=== PATIENT | male | born 2000 | race Caucasian/White ===

== ENCOUNTER 2022-02-13 17:39 | Day surgery (SDC) | payer OTHER, SELFPAY ==
[2022-02-13] VITALS (10 sets, daily range): BP systolic 110–134; BP diastolic 60–79; PULSE 74–120; RESP 10–18; TEMP 36.3–36.9; O2SAT 96–98
--- NOTE | 2022-02-13 18:14 | CT_ITS ---
Patient: TG WILLIS Facility:?[facility] Patient ID:?[id number] Site Patient ID:?[id number]. Site :?2002 Study:?CT-Abdomen/Pelvis W/79CC [id number] 6:47:08 PM Ordering Physician:Adele Rodriguez Final Report: INDICATION: Right lower quadrant pain TECHNIQUE: CT abdomen and pelvis acquired with 79 cc Isovue 370 contrast. COMPARISON: None FINDINGS: Lower chest: Unremarkable. Liver: Unremarkable. Gallbladder and bile ducts: Unremarkable. Spleen: Unremarkable. Pancreas: Unremarkable. Adrenal glands: Unremarkable. Kidneys: Unremarkable. GI tract: The appendix is dilated with thickened wall and mild fat stranding. Appendix measures 9 mm in diameter. No evidence of perforation or abscess Vascular structures: Negative. No sign of aneurysm. Lymph nodes: Unremarkable. Miscellaneous: Unremarkable. No free air or significant free fluid. Pelvic Organs: Unremarkable. Bones: Unremarkable for age. IMPRESSION: Findings compatible with acute uncomplicated appendicitis. No evidence of perforation or abscess. Please note that all CT scans at this facility use dose modulation, iterative reconstruction, and/or weight-based dosing when appropriate to reduce radiation dose to as low as reasonably achievable. Dictated by Karl Meeks MD @ 02/13/2022 7:03:26 PM Signed by:?Karl Meeks MD @02/13/2022 7:03:26 PM (Electronic Signature)
--- NOTE | 2022-02-13 18:15 | ED.ABDPAIN ---
HPI - Abdominal Pain General Chief Complaint: Abdominal Pain Stated Complaint: Lower Abdominal Pain Time Seen by Provider: 02/13/22 18:08 History of Present Illness HPI narrative: This 21-year-old male comes in reporting lower abdominal pain that began 3 days ago. He states that the pain seems to come and go. He has not had any fevers. He does have decreased appetite but has been able to take food and drink without difficulty. He does not report any nausea or vomiting. He has not had a diarrhea or blood in the toilet. He does arrive with normal temperature and a pulse that is increased at around 120 beats per minute. Prior to this he has been in good health. Related Data Allergies Allergy/AdvReac Type Severity Reaction Status Date / Time No Known Drug Allergies Allergy Verified 02/13/22 18:43 Review of Systems Status of ROS Reports: 10 or more systems reviewed and unremarkable except as noted in History and below Narrative Constitutional: No fevers, no weight gain or loss. Eyes: No discharge. No vision changes. HENT: No congestion, no sore throat, no ear pain. Cardiovascular: No chest pain, no palpitations. Respiratory: No shortness of breath, no wheezes, no cough. Gastrointestinal: No vomiting, no diarrhea. Lower abdominal pain. Genitourinary: No dysuria, no hematuria. Musculoskeletal: Normal range of motion. Skin: No rashes, no pruritis. Neurological: No dizziness, weakness, sensory change, speech change. Endo/Heme/Allergies: No bruising or bleeding. No polydipsia. Pysch: no suicidality, no anxiety, no insomnia. All other systems reviewed and are negative. PFSH PFSH Social History Smoking Status: Never smoker Do you use any of these nicotine containing products: None Second hand tobacco smoke exposure: No How often do you have a drink containing alcohol: never How often do you have six or more drinks on one occasion: Never AUDIT-C Alcohol total score: 0 Non-prescribed substance use: denies use service: No Exam Narrative: Exam Narrative: Constitutional: Well-developed, well-nourished, no acute distress. HEENT: Normocephalic, atraumatic. Neck: Normal range of motion. Nontender. Supple. Heart: Regular. No murmurs. Normal rate. Intact distal pulses. Lungs: Clear to auscultation. No chest discomfort. No wheezes, rhonchi, or rales. Abdomen: Decreased bowel sounds. Tenderness in the lower abdomen. He has distinct rebound tenderness. Genitalia: Deferred. Back: No midline tenderness. Normal range of motion. Extremities: Normal range of motion. No injury. Skin: Intact. No rash. Warm. No erythema or pallor. Neurologic: No altered sensation. No weakness. Alert and oriented. Psychiatric: No suicidality. No anxiety or depression. No insomnia. Nursing notes and vitals signs are reviewed. Const: Vital Signs, click to edit/add: Vital Signs - 24 hr 02/13/22 17:46 02/13/22 18:07 02/13/22 19:00 Temperature 97.3 F L 97.3 F L Pulse Rate [Pulse Oximeter] 120 H 120 H Respiratory Rate 18 18 Blood Pressure [Ri ght Upper Arm] 124/60 124/60 123/63 Pulse Oximetry 97 97 Oxygen Delivery Me thod Room Air Room Air 02/13/22 19:30 02/13/22 20:00 02/13/22 20:30 Temperature Pulse Rate [Pulse Oximeter] Respiratory Rate Blood Pressure [Ri ght Upper Arm] 110/65 116/60 117/61 Pulse Oximetry Oxygen Delivery Me thod Course Vital Signs Vital signs: Initial Vital Signs Temperature 97.3 F L 02/13/22 17:46 Temperature Source Temporal Artery Scan 02/13/22 17:46 Pulse Rate 120 H 02/13/22 17:46 Pulse Rhythm 02/13/22 17:46 Respiratory Rate 18 02/13/22 17:46 Blood Pressure 124/60 02/13/22 17:46 Blood Pressure Mean 81 02/13/22 17:46 Blood Pressure Position Sitting 02/13/22 17:46 Pulse Oximetry 97 02/13/22 17:46 Oxygen Delivery Method 02/13/22 17:46 Vital Signs Temperature 97.3 F L 02/13/22 17:46 Pulse Rate 120 H 02/13/22 17:46 Respiratory Rate 18 02/13/22 17:46 Blood Pressure 124/60 02/13/22 17:46 Pulse Oximetry 97 02/13/22 17:46 Oxygen Delivery Method 02/13/22 17:46 Temperature 97.3 F L 02/13/22 18:07 Pulse Rate 120 H 02/13/22 18:07 Respiratory Rate 18 02/13/22 18:07 Blood Pressure 117/61 02/13/22 20:30 Pulse Oximetry 97 02/13/22 18:07 Oxygen Delivery Method 02/13/22 18:07 MDM - Abdominal Pain MDM Narrative Medical decision making narrative: This patient comes in with abdominal pain as described above. This CT scan with contrast is acquired of the abdomen and pelvis. This returns with evidence of acute uncomplicated appendicitis. The patient's white count returns normal at 8. He does have mild tachycardia. I spoke with the surgeon on-call, Dr. Terrell, who will arrange for appendectomy in the morning. He is admitted overnight and received IV fluids and a dose of Zosyn. Lab Data Labs: Lab Results 02/13/22 02/13/22 Range/Units 18:30 18:30 WBC 7.97 (4.50-11.00) K/uL RBC 5.04 (4.30-5.90) m/uL Hgb 15.5 (13.5-17.5) gm/dL Hct 44.3 (37.0-53.0) % MCV 88 (80-100) fL MCH 31 (26-34) pg MCHC 35 (32-36) gm/dL RDW Coeff of Baldemar 11.7 (11.5-15.5) % Plt Count 195 (140-440) K/uL Neut % (Auto) 80.9 H (42.0-72.0) % Lymph % (Auto) 13.2 L (20-44) % Hardin % (Auto) 5.1 (0.0-11.0) % Eos % (Auto) 0.4 (0.0-7.0) % Baso % (Auto) 0.3 (0.0-3.0) % Neut # (Auto) 6.40 (1.7-7.0) K/uL Lymph # (Auto) 1.10 (0.90-2.90) K/uL Hardin # (Auto) 0.40 (0.00-0.90) K/UL Eos # (Auto) 0.03 (0.00-0.50) K/uL Baso # (Auto) 0.02 (0.00-0.30) K/uL Abs Immat Gran (auto) 0.01 (0.00-0.30) K/uL Imm/Tot Granulo (auto) 0.1 % Sodium 137 (135-149) mmol/L Potassium 4.1 (3.6-5.1) mmol/L Chloride 98 (96-114) mmol/L Carbon Dioxide 29 (20-32) mmol/L BUN 16 (5-24) mg/dL Creatinine 0.9 (0.6-1.2) mg/dL Estimated Creat Clear 135.52 Estimated GFR 126 ml/min Glucose 181 H (60-115) mg/dL Calcium 9.7 (8.7-10.8) mg/dL Imaging Data CT scan - abdomen: Radiologist's impression: Findings compatible with acute uncomplicated appendicitis. No evidence of perforation or abscess. Discharge Plan Discharge Clinical Impression: Acute appendicitis Patient Disposition: Admitted As Inpatient Condition: Unchanged Follow Up/Referrals: Provider,Not a Local [Primary Care Provider] -
[2022-02-13 18:35] LABS: Basophils Absolute Auto 0.02 K/uL (0.00-0.30); Basophils Percent Auto 0.3 % (0.0-3.0); Eosinophils Absolute Auto 0.03 K/uL (0.00-0.50); Eosinophils Percent Auto 0.4 % (0.0-7.0); Hematocrit 44.3 % (37.0-53.0); Hemoglobin* 15.5 gm/dL (13.5-17.5); Immature Granulocytes Abs Auto 0.01 K/uL (0.00-0.30); Immature Granulocytes Pct Auto 0.1 %; Lymphocytes Percent Auto 13.2 % (20-44); Mean Corpuscular HGB Conc 35 gm/dL (32-36); Mean Corpuscular Hemoglobin 31 pg (26-34); Mean Corpuscular Volume 88 fL (80-100); Monocytes Percent Auto 5.1 % (0.0-11.0); Neutrophils Percent Auto 80.9 % (42.0-72.0); Platelet Count* 195 K/uL (140-440); RDW Coefficient of Variation % 11.7 % (11.5-15.5); Red Blood Count 5.04 m/uL (4.30-5.90); White Blood Count* 7.97 K/uL (4.50-11.00)
[2022-02-13 18:40] LABS: Slide Review Reflex No
[2022-02-13 18:49] LABS: Chloride* 98 mmol/L (96-114); Potassium* 4.1 mmol/L (3.6-5.1); Sodium* 137 mmol/L (135-149)
[2022-02-13 18:52] LABS: Blood Urea Nitrogen* 16 mg/dL (5-24); Calcium* 9.7 mg/dL (8.7-10.8); Carbon Dioxide* 29 mmol/L (20-32); Creatinine* 0.9 mg/dL (0.6-1.2); Est. Creatinine Clearance* 135.52; Estimated Glomerular Filt Rate 126 ml/min; Glucose* 181 mg/dL (60-115)
[2022-02-13] MEDS: PIPERACILLIN/TAZOBACTAM 4.5 GM in 0.9 % SODIUM CHLORIDE Mini-bag 100 ML IVPB (21:11)
[2022-02-13] MEDS: 0.9 % SODIUM CHLORIDE 1000 ml 1,000 ML IV (21:11)
[2022-02-13 21:28] LABS: PCR FLU A Negative PCR FLU A (Negative); PCR FLU B Negative PCR FLU B (Negative); PCR RSV Negative PCR RSV (Negative)
[2022-02-13 21:38] LABS: SARS PCR* Negative SARS-CoV-2 (Negative)
[2022-02-13] MEDS: LACTATED RINGERS 1000 ML 1,000 ML 100 ML IV (22:21)
[2022-02-14] VITALS (17 sets, daily range): BP systolic 103–130; BP diastolic 47–86; PULSE 68–120; RESP 14–18; TEMP 36.4–37.2; O2SAT 94–99
[2022-02-14] MEDS: PIPERACILLIN/TAZOBACTAM 3.375 GM in 0.9 % SODIUM CHLORIDE Mini-bag 100 ML IVPB (03:11)
--- NOTE | 2022-02-14 05:50 | PC.NURSE ---
ADMISSION/SHIFT NOTE: Pt to room 260 for plan for sx today at 0800, NPO at midnight. Pt has denied pain, SOB, CP, and N/V. Up independent to the BR. A&O, pleasant and cooperative.
[2022-02-14] MEDS: LACTATED RINGERS 1000 ML 1,000 ML 100 ML IV ×2 (08:00→11:32)
--- NOTE | 2022-02-14 08:19 | P.GSHP_ITS ---
History of Present Illness History of Present Illness Date Seen: 02/14/22 Chief complaint: Lower Abdominal Pain Narrative: Malvin Aranda is a 21 year old male presented to emergency room was abdominal pain, and I was asked by Dr. Ibarra to see him in consultation. Patient states that his pain started on Wednesday. He described it as bilateral lower quadrant abdominal pain. Overall he was not feeling well. He attempted to go to class but was only able to stay there for 20 minutes because of his pain. He mostly stayed in bed. He denies any nausea or vomiting. Yesterday in the evening he went to [facility] and was referred to the emergency room. Patient has been passing gas yesterday. His last bowel movement was on . In the emergency room he was found to have a normal WBC. An abdominal CT was obtained that showed a dilated wall enhancing appendix suspicious for acute appendicitis. There was no phlegmon or periappendiceal abscess. Review of Systems Narrative: General: no fevers HENT: no problems swallowing CV: no shortness of breath Resp: no cough GI: See above : no dysuria, no increased urinary frequency, no hematuria Skin: no new rashes Musculoskeletal: no back pain Neuro: no muscle weakness Psyche: no depression, no anxiety PFSH PFSH Surgical History S/P tonsillectomy Social History Narrative: Patient is a student. He is originally from [place]. Smoking Status: Never smoker Do you use any of these nicotine containing products: None Second hand tobacco smoke exposure: No How often do you have a drink containing alcohol: never How often do you have six or more drinks on one occasion: Never AUDIT-C Alcohol total score: 0 Non-prescribed substance use: denies use service: No Meds Home Medications and Allergies Allergies Allergy/AdvReac Type Severity Reaction Status Date / Time No Known Drug Allergies Allergy Verified 02/13/22 18:43 Exam Narrative: Exam Narrative: General appearance: Alert, cooperative, and in no distress Pulmonary: Chest symmetric, lungs clear bilaterally Cardiovascular Heart: Regular rate and rhythm, S1, S2, no murmurs/rubs/gallops Gastrointestinal Abdominal: soft, not distended, tender to palpation in bilateral lower qu adrants, right more than left, with rebound tenderness in the right lower quadrant. Skin: Normal skin color, texture, and turgor. No rashes or lesions. Psychiatric: Alert, cooperative, normal affect. Const: Vital Signs, click to edit/add: Vital Signs - 24 hr 02/13/22 17:46 02/13/22 18:07 02/13/22 19:00 Temperature 97.3 F L 97.3 F L Pulse Rate Pulse Rate [Pulse Oximeter] 120 H 120 H Pulse Rate [Right Pulse Oximeter] Respiratory Rate 18 18 Blood Pressure Blood Pressure [Ri ght Arm] Blood Pressure [Ri ght Upper Arm] 124/60 124/60 123/63 Pulse Oximetry 97 97 Oxygen Delivery Me thod Room Air Room Air 02/13/22 19:30 02/13/22 20:00 02/13/22 20:30 Temperature Pulse Rate Pulse Rate [Pulse Oximeter] Pulse Rate [Right Pulse Oximeter] Respiratory Rate Blood Pressure Blood Pressure [Ri ght Arm] Blood Pressure [Ri ght Upper Arm] 110/65 116/60 117/61 Pulse Oximetry Oxygen Delivery Me thod 02/13/22 22:00 02/13/22 21:30 02/13/22 21:00 Temperature Pulse Rate Pulse Rate [Pulse Oximeter] 88 103 H 101 H Pulse Rate [Right Pulse Oximeter] Respiratory Rate 14 12 10 L Blood Pressure Blood Pressure [Ri ght Arm] Blood Pressure [Ri ght Upper Arm] 134/66 121/73 128/75 Pulse Oximetry 98 98 97 Oxygen Delivery Me thod 02/13/22 23:00 02/13/22 23:00 02/14/22 03:00 Temperature 98.4 F 98.4 F 98 F Pulse Rate 74 Pulse Rate [Pulse Oximeter] Pulse Rate [Right Pulse Oximeter] 96 71 Respiratory Rate 16 16 18 Blood Pressure 132/79 Blood Pressure [Ri ght Arm] 132/79 110/62 Blood Pressure [Ri ght Upper Arm] Pulse Oximetry 96 96 96 Oxygen Delivery Me thod Room Air Room Air Results Results CT scan - pelvis: report reviewed and image reviewed Assessment and Plan Assessment and plan (1) Acute appendicitis: Status: Acute Plan 21-year-old male presents with acute appendicitis. I discussed with the patient his laboratory and imaging findings. His history is slightly prolonged for acute appendicitis but his CT findings and his clinical exam I very suggestive of acute appendicitis. I recommended to proceed with laparoscopic appendectomy. The procedure was discussed in detail. The risks associated procedure including infection, bleeding, and injury to intra- abdominal organs were all discussed with the patient, and he agreed to proceed.
[2022-02-14] MEDS: PIPERACILLIN/TAZOBACTAM 3.375 GM INJ IVP (09:50)
[2022-02-14] MEDS: BUPIVACAINE 0.25% 30 ML INJECTION (10:16)
--- NOTE | 2022-02-14 10:18 | PM.GSPRC ---
Operative Note Date of procedure: 02/14/22 Type of Procedure: 1. Laparoscopic appendectomy. Procedure Description: After discussing the risks and benefits of the procedure, the patient signed informed consent.? The operative site was marked and the patient was brought to the operating room and placed on the operating table in supine position.? Care was taken to pad the patient's pressure points.?? The patient was then intubated by anesthesia.?? The operative site was then prepped and draped in the usual sterile fashion.? A time-out was then performed. ? A 5-mm laparoscopy port was placed in the left upper quadrant guided by a 5-mm laparoscope placed into a translucent trochar. Passage through the layers of the abdominal wall was visualized with the laparoscope. A pneumoperitoneum was established. A 30-degree 5-mm laparoscope was advanced into the abdomen. The abdomen was briefly surveyed, and there was no evidence of diffuse peritonitis. A 12-mm port and a 5-mm port were placed in the left low quadrant and suprapubically, respectively, under direct visualization by laparoscope. Left upper quadrant entrance port was then examined intraabdominally by placing the camera through the left lower quadrant port and no intraabdominal injury was seen. The patient was placed in Trendelenburg position, allowing the abdominal contents to shift cephalad. The small bowel was moved toward the midline in the abdomen and this allowed for identification of the appendix. It appeared to be inflamed. The appendix was grasped and dissected from the peritoneum using Harmonic scalpel. The appendiceal mesentery was skeletonized with the Harmonic scalpel. Appendiceal artery and vein were clearly identified. Those were clipped with 5 mm clips on the patient's side and divided with Harmonic scalpel on the specimen side. No bleeding was seen from appendiceal mesentery. The appendiceal base was then further skeletonized with Harmonic scalpel. A vascular load Endo-MITALI stapler was advanced through the 12-mm port into the abdomen and appendix was stapled off at its base. The appendix was then placed in an endoscopic retrieval bag and extracted from the abdomen through the 12-mm port. The abdomen was surveyed for hemostasis. And no bleeding was seen. Thin yellow ascitic fluid was seen in the pelvis, and that was suctioned out. The 12-mm port was withdrawn and the fascial defect was closed with 0-0 Vicryl [id number] stitch. This closure site was examined intra-abdominally, and no intra-abdominal organs were incarcerated in the closure. The 5-mm port was removed under direct visualization. The left upper quadrant port was used to evacuate the pneumoperitoneum and then withdrawn. The skin incisions were closed with 4-0 monocryl. Steri-Strips were applied over the incisions. All counts were correct at the end of the case. The patient tolerated this procedure well and was transferred to PACU in stable condition. Findings: Inflamed appendix with no evidence of perforation. Anesthesia: GETA Surgeon: Serenity Terrell MD Condition: stable Disposition: PACU
--- NOTE | 2022-02-14 10:28 | W.ANESCHARGE ---
Anesthesia Charges Start Date/Time Anesthesia Start Date: 02/14/22 Anesthesia Start Time: 09:27 Stop Date/Time Anesthesia Stop Date: 02/14/22 Anesthesia Stop Time: 10:30 Summary Emergency: Yes
[2022-02-14] MEDS: MORPHINE 2 MG/ML inj IVP ×2 (11:35→13:57)
[2022-02-14] MEDS: HYDROCODONE-ACETAMIN 5-325 MG 1 TAB PO (17:12)
--- NOTE | 2022-02-14 18:07 | PC.NURSE ---
Shift Summary: Patient pleasant and cooperative. Up independently, lap sites with dried blood, no active bleeding noted. Pain with ambulation and position change, rates pain at worse 5/10. Tolerating regular diet, denies nausea, voiding. Vitals stable and WNL. IV removed, discharge instructions given to patient and uncle. Discharged @ 1742 via wheelchair.
== END 2022-02-14 17:42 | disposition home or self-care (01) ==
LOC: ED 21:08 → SS 21:16 → MEDSURG 21:17
PROVIDERS: Emergency Provider Emergency Medicine Emergency Medical Services; Visit Provider Surgery
PROC: 0DTJ4ZZ Resection of Appendix, Percutaneous Endoscopic Approach (ICD-10-PCS; CPT 44970; principal; 2022-02-14 09:30)
DX: K35.80 Unspecified acute appendicitis (principal); R10.30 Lower abdominal pain, unspecified
CPT/HCPCS: 44970; 00840; 36415; 74177; 80048; 85025; 87502; 87634; 87635; 88304; 99140; 99284; 99285; A9270; J0330; J1100; J1885; J2250; J2270; J2405; J2543; J2704; J2710; J3010; J3490; J7030; J7120; Q9967

== ENCOUNTER 2023-02-01 18:31 | Emergency (ER) | payer OTHER, SELFPAY ==
[2023-02-01 18:34] VITALS: BP 125/78; PULSE 93; RESP 18; TEMP 36.8; O2SAT 97; BMI 21.2
--- NOTE | 2023-02-01 18:42 | CRLHL7_ITS ---
For Patients: As a result of the Cures Act, medical imaging exams and procedure reports are released immediately into your electronic medical record. You may view this report before your referring provider. If you have questions, please contact your health care provider. INDICATION: Fall. TECHNIQUE: Right clavicle 2 views. COMPARISON: None. FINDINGS: There is an acute comminuted fracture of the mid right clavicle with superior displacement and angulation of the proximal fracture fragment. Approximately 3 cm overlap of the dominant fracture fragments. The acromioclavicular joint is normally aligned. The visualized right lung is clear. Soft tissues are unremarkable. IMPRESSION: Acute comminuted displaced fracture of the mid right clavicle. Dictated by Annika Avila MD @ 02/01/2023 7:39:53 PM (Electronically Signed)
--- NOTE | 2023-02-01 19:40 | ED.UPPEXIN ---
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 Zapata a snap in the clavicle, is worried about his clavicle. Denies any numbness tingling in this upper extremity, can feel his fingers, can move them per report. He has no neck pain, no head pain, nothing else was injured. He has not taken anything for pain. Nursing staff did provide him with an arm sling and ice pack appropriately on arrival. X-ray images were obtained, I am able to show him that he has a comminuted shortened midshaft clavicle fracture. complaint: injury to: right and shoulder ( Specifically the clavicle) Other injuries: none Related Data Home Medications Medication Instructions Recorded Confirmed No Known Home Medications 02/01/23 02/01/23 Allergies Allergy/AdvReac Type Severity Reaction Status Date / Time No Known Drug Allergies Allergy Verified 02/01/23 18:39 Review of Systems Narrative: as per HPI. PFSH PFSH Surgical History S/P tonsillectomy ?Z90.89 - Acquired absence of other organs (ICD-10) Social History Narrative: Patient is a student. He is originally from [place]. Smoking Status: Never smoker Do you use any of these nicotine containing products: None Second hand tobacco smoke exposure: No How often do you have a drink containing alcohol: never How often do you have six or more drinks on one occasion: Never AUDIT-C Alcohol total score: 0 Non-prescribed substance use: denies use service: No Exam Const: Vital Signs, click to edit/add: Vital Signs - 24 hr 02/01/23 18:34 Temperature 98.2 F Pulse Rate [Pulse Oximeter] 93 Respiratory Rate 18 Blood Pressure [Le ft Upper Arm] 125/78 Pulse Oximetry 97 Oxygen Delivery Me thod Room Air This 22-year-old male is seen exam room 7, he is alert, interactive, no apparent distress. His right arm is in a sling, he can move his fingers, neurovascular is intact distally. You can see that there is raised skin in the center of the clavicle but there is not tension per se on the skin. There is an obvious deformity of the midshaft of the clavicle. CV regular rate and rhythm, no murmur, normal S1 and S2. Lungs are clear, good air entry, no wheezing or crackles. Patient is shown images of his clavicle fracture. Documenting provider has reviewed patient's vital signs: yes Course Course ED Course: Patient has a significant clavicle fracture, did review with him that I would be talking to Orthopedics on this 1. We will give him 5 mg oral oxycodone for some initial pain management, he has not eaten recently and thus will give him some Zofran as well. Consultations Consultation #1: Karl from orthopedics has seen images, believes likely to be surgical. Requests that he follow up with them this week, sling and recommendations made. Time: 19:50 Vital Signs Vital signs: Initial Vital Signs Temperature 98.2 F 02/01/23 18:34 Temperature Source Temporal Artery Scan 02/01/23 18:34 Pulse Rate 93 02/01/23 18:34 Respiratory Rate 18 02/01/23 18:34 Blood Pressure 125/78 02/01/23 18:34 Blood Pressure Mean 93 02/01/23 18:34 Blood Pressure Position Sitting 02/01/23 18:34 Pulse Oximetry 97 02/01/23 18:34 Oxygen Delivery Method Room Air 02/01/23 18:34 Vital Signs Temperature 98.2 F 02/01/23 18:34 Pulse Rate 93 02/01/23 18:34 Respiratory Rate 18 02/01/23 18:34 Blood Pressure 125/78 02/01/23 18:34 Pulse Oximetry 97 02/01/23 18:34 Oxygen Delivery Method Room Air 02/01/23 18:34 Temperature 98.2 F 02/01/23 18:34 Pulse Rate 93 02/01/23 18:34 Respiratory Rate 18 02/01/23 18:34 Blood Pressure 125/78 02/01/23 18:34 Pulse Oximetry 97 02/01/23 18:34 Oxygen Delivery Method Room Air 02/01/23 18:34 MDM - Extremity Injury (Upper) Imaging Data XR right clavicle: My impression: Mid shaft comminuted it shortened clavicle fracture. Await Radiology over-read. Radiologist's impression: Patient: TG WILLIS Facility:?[facility] Patient ID:?[id number] Site Patient ID:?[id number]. Site :?2002 Study:?XRay Extremity Right CLAVICAL-02/01/2023 7:01:09 PM Ordering Physician:?PROVIDER TEMP Final Report: INDICATION: Fall. TECHNIQUE: Right clavicle 2 views. COMPARISON: None. FINDINGS: There is an acute comminuted fracture of the mid right clavicle with superior displacement and angulation of the proximal fracture fragment. Approximately 3 cm overlap of the dominant fracture fragments. The acromioclavicular joint is normally aligned. The visualized right lung is clear. Soft tissues are unremarkable. IMPRESSION: Acute comminuted displaced fracture of the mid right clavicle. Dictated by Annika Avila MD @ 02/01/2023 7:39:53 PM (Electronic Signature) Discharge Plan Discharge Clinical Impression: Closed fracture of right clavicle Patient Disposition: Home, Self-Care Condition: Stable Instructions: Clavicle Fracture (ED) Additional Instructions: Need to call orthopedic clinic tomorrow at [phone] to get scheduled for follow up, they will decide on surgery definitively but do believe that it is very likely for you. Use sling for comfort, ice to help decrease pain and swelling. Use Tylenol 1000mg 3x/day baseline for pain; supplement with ibuprofen 400-600mg 3-4x/day with food. Can use the oxycodone at bedtime for sleep. May need to sleep more upright for the time being, prop pillows behind the right shoulder/arm for support. If you feel that the skin overlying the fracture is becoming more tight/looking thinner, need to be re-evaluated. Can take arm out of sling few times a day for gentle range of motion of shoulder and elbow. Prescriptions: No Action No Known Home Medications Follow Up/Referrals: Provider,Not a Local [Primary Care Provider] - Stand Alone Forms: [employer] Info Instructions
[2023-02-01] MEDS: OXYCODONE 5 MG TABLET PO (19:52)
[2023-02-01] MEDS: ONDANSETRON ODT 4 MG TAB PO (19:52)
== END 2023-02-01 20:27 | disposition home or self-care (01) ==
LOC: ED 20:08
PROVIDERS: Emergency Provider Family Medicine
DX: S42.001A Fracture of unspecified part of right clavicle, initial encounter for closed fracture (principal); W01.0XXA Fall on same level from slipping, tripping and stumbling without subsequent striking against object, initial encounter; Y93.74 Activity, frisbee
CPT/HCPCS: 73000; 99283; A9270

== ENCOUNTER 2023-02-04 09:11 | Day surgery (SDC) | payer OTHER, SELFPAY ==
[2023-02-04] VITALS (12 sets, daily range): BP systolic 107–128; BP diastolic 51–75; PULSE 63–81; RESP 16; TEMP 36.2–36.9; O2SAT 95–100; BMI 20.3
[2023-02-04] MEDS: CELECOXIB 200 MG CAPSULE PO (09:25)
[2023-02-04] MEDS: OXYCODONE (CR) 10 MG TAB.ER.12H PO (09:25)
[2023-02-04] MEDS: ACETAMINOPHEN 500 MG TABLET 1000 MG PO (09:25)
[2023-02-04] MEDS: SODIUM CHLORIDE 0.9 % (FLUSH) 10 ML SYRINGE IVF (09:30)
[2023-02-04] MEDS: LACTATED RINGERS 1000 ML 1,000 ML 100 ML IV ×2 (09:30→13:20)
--- NOTE | 2023-02-04 09:51 | P.ORHP_ITS ---
History of Present Illness History of Present Illness Date Seen: 02/04/23 Chief complaint: Open reduction internal fixation right clavicle Narrative: Malvin Aranda is a 22 year old male [facility] Surgical History History of laparoscopic appendectomy (02/14/22) ?Z90.49 - Acquired absence of other specified parts of digestive tract (ICD- 10) S/P tonsillectomy ?Z90.89 - Acquired absence of other organs (ICD-10) Social History Narrative: Patient is a student. He is originally from [place]. Smoking Status: Never smoker Do you use any of these nicotine containing products: None Second hand tobacco smoke exposure: No How often do you have a drink containing alcohol: never How often do you have six or more drinks on one occasion: Never AUDIT-C Alcohol total score: 0 Non-prescribed substance use: denies use Caffeine: Yes service: No Meds Home Medications and Allergies Home Medications Medication Instructions Recorded Confirmed Type No Known Home Medications 02/01/23 02/03/23 History Allergies Allergy/AdvReac Type Severity Reaction Status Date / Time No Known Drug Allergies Allergy Verified 02/04/23 10:11
--- NOTE | 2023-02-04 09:53 | P.PROHP_ITS ---
HPI - Pre-Anesthesia History of Present Illness Time Seen by Provider: 09:53 Date Seen: 02/04/23 Date of service: 02/04/23 Reason for visit: Right clavicle fracture. 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 He was playing [employer] on 02/01/2023 when he fell onto his right shoulder area. [place] a snap in the clavicle. Denies any numbness tingling in this upper extremity, can feel his fingers, can move them. He has no neck pain, no head pain, nothing else was injured. He he took ibuprofen last evening. He has been NPO. He has used an arm sling and ice pack. X-ray images were obtained which shows comminuted shortened midshaft clavicle fracture. He denies DVT, PE history. He has not had trouble with anesthesia in the past. Review of Systems Narrative: Patient denies nausea, vomiting, fever, chills, chest pain, shortness of breath Cardio: Reports: other (No history of heart murmur) Musculo: Reports: other (Right clavicle pain/soreness) [facility] Surgical History History of laparoscopic appendectomy (02/14/22) ?Z90.49 - Acquired absence of other specified parts of digestive tract (ICD- 10) S/P tonsillectomy ?Z90.89 - Acquired absence of other organs (ICD-10) Social History Narrative: Patient is a student. He is originally from [place]. Smoking Status: Never smoker Do you use any of these nicotine containing products: None Second hand tobacco smoke exposure: No How often do you have a drink containing alcohol: never How often do you have six or more drinks on one occasion: Never AUDIT-C Alcohol total score: 0 Non-prescribed substance use: denies use service: No Meds Home Medications and Allergies Home Medications Medication Instructions Recorded Confirmed Type No Known Home Medications 02/01/23 02/03/23 History Allergies Allergy/AdvReac Type Severity Reaction Status Date / Time No Known Drug Allergies Allergy Verified 02/03/23 14:39 Exam Narrative Exam Narrative: Alert and oriented x3. Patient is in no acute distress. Converses without labored breathing. Hearing is grossly intact. Ambulates with a normal gait. Examination of the right upper extremity shows prominence of the mid shaft clavicle fracture. Mild tenting of the skin. Mild ecchymosis. No erythema or warmth or sign of infection. CMS intact right upper extremity. Range of motion of the elbow, wrist, fingers is normal. Tenderness over the fracture area midshaft clavicle. Const Documenting provider has reviewed patient's vital signs: yes Common normals: average body habitus, oriented x3 and alert General appearance: cooperative, comfortable and well kempt Orientation/consciousness: Yes awake, Yes oriented to person, Yes oriented to place and Yes oriented to time HENMT Common normals: normocephalic, external ears normal and external nose normal Head and scalp: normocephalic Nose: external nose normal External ear: external ears normal Mouth: oral and palatal mucosa normal Neck & C-Spine Common normals: full ROM and no JVD Lymph Lymphatic: no lymphadenopathy noted Chest Common normals: inspection of chest normal Resp Common normals: normal respiratory effort, no retractions, no use of accessory muscles and clear to auscultation bilaterally Effort & inspection: able to speak in complete sentences and symmetric chest movement Auscultation: clear to auscultation bilaterally Cardio Common normals: no JVD, regular rate and regular rhythm Rate: regular rate Rhythm: regular rhythm GI Common normals: Normal to inspection, nondistended, normoactive bowel sounds present, soft to palpation, non-tender, no hepatosplenomegaly, no masses and no bruits Palpation: soft and no hepatosplenomegaly Extremity Common normals: normal to inspection and full ROM (Except right shoulder, arm held comfortably at his side.) Neuro Common normals: oriented x3 Sensorium/orientation: awake, alert, oriented to person, oriented to place and oriented to time Sensory exam: sensation present Psych Common normals: mental status grossly normal, thought process normal, cooperative, affect normal, speech normal and activity/motor behavior normal Appearance: grossly normal and well kempt Speech: normal speech Thought process: normal thought process Skin Common normals: no rashes or lesions noted General skin exam: no rashes or lesions noted Results Additional Findings: Additional findings: X-rays were taken on 02/01/2023 right clavicle, two views these show Acute comminuted displaced fracture of the mid right clavicle. Assessment and Plan Assessment and plan (1) Closed fracture of right clavicle: Problem comment: Date of injury 02/01/2023 Status: Acute Assessment and Plan: Malvin has been NPO. He did have ibuprofen a last evening. He is optimal for open reduction, internal fixation right clavicle today. Dr. Peña will be the surgeon. He agrees with plan. Patient agrees with the plan. Risks and benefits have been discussed. Note, dictation performed with voice recognition, and as a result, wrong word or sound like substitutions may have occurred. There may be areas in the script that have gone on detected. Please consider this when interpreting information found in the chart.
[2023-02-04] MEDS: fentaNYL 100 MCG/2 ML inj IVP (11:57)
[2023-02-04] MEDS: MIDAZOLAM HCL 1 MG/ML inj IVP (11:57)
--- NOTE | 2023-02-04 12:05 | SUR.PREOP ---
TIME?OUT:?1155 PT/[address] RN/Bassem MIXON MDA?VERIFICATION?OF?SURGICAL?SITE,?PROCEDURE,?AND?CONSENT OBTAINED?PRIOR?TO?INVASIVE?PROCEDURE.
[2023-02-04] MEDS: CEFAZOLIN 2 GM INJ IVP (12:22)
--- NOTE | 2023-02-04 13:15 | W.ANESCHARGE ---
Anesthesia Charges Start Date/Time Anesthesia Start Date: 02/04/23 Anesthesia Start Time: 12:12 Stop Date/Time Anesthesia Stop Date: 02/04/23 Anesthesia Stop Time: 14:15
--- NOTE | 2023-02-04 13:16 | W.PM.NB ---
Nerve Block Nerve Block Time Seen by Provider: 12:02 Date Seen: 02/04/23 Type of block requested by surgeon for post-operative analgesia: supraclavicular Side: right Time out performed: Yes Verification of patient name: Yes Verification of date of : Yes Site marking: site marked Name of person performing procedure: Thong Continuous monitoring Was continuous monitoring of O2 sat, B/P, youth nutritional monitor, recorded every 15 minutes?: Yes Procedure Checklist: sterile prep, needles and gloves Ultrasound guided. Images saved: Yes Medications given in 5ml increments after negative aspiration: Ropivicaine %: 0.5 mL: 20 Needle gauge: 22 Decadron (mg): 10 Precedex (mcg): 25 Patient tolerated procedure well: Yes Block Charges Block Charge (with Pro Fee): Brachial Plexus Use of Ultrasound Machine for Block: Yes- US Guidance/pain block
--- NOTE | 2023-02-04 13:26 | CRLHL7_ITS ---
For Patients: As a result of the Cures Act, medical imaging exams and procedure reports are released immediately into your electronic medical record. You may view this report before your referring provider. If you have questions, please contact your health care provider. Indication: Fracture fixation Technique: Right clavicle one-view Comparison: 02/01/2023 IMPRESSION: Open-reduction internal-fixation mid right clavicle fracture with near anatomic alignment. Dictated by Johann Gavin MD @ 02/05/2023 11:19:13 AM (Electronically Signed)
--- NOTE | 2023-02-04 14:10 | P.ORPRC_ITS ---
Procedure Note Date of procedure: 02/04/23 Procedure: PREOPERATIVE DIAGNOSIS: Comminuted and displaced right clavicle shaft fracture POSTOPERATIVE DIAGNOSIS: Comminuted and displaced right clavicle shaft fracture NAME OF OPERATION: ORIF SURGEON: Fran Peña MD SIGNAL INTELLIGENCE/ELECTRONIC WARFARE: YAMILETH Dumont ANESTHESIA: General ESTIMATED BLOOD LOSS: 10 mL COMPLICATIONS: None SPECIMENS: None DRAINS: None PREOPERATIVE ANTIBIOTICS: Ancef 1 g INDICATIONS: The patient is a 22-year-old who sustained a right clavicle fracture. Given the amount of displacement, ORIF was recommended. The risks, benefits and expected outcomes were discussed in detail. These included but were not limited to: Infection, bleeding, injury to blood vessel or nerve, venous thromboembolism. All questions were answered to their satisfaction. PROCEDURE: General anesthesia was administered. The patient was placed in the lazy beach chair position. The shoulder was prepped and draped in the usual sterile fashion. A longitudinal incision was made over clavicle. Subcutaneous dissection was made with electrocautery to the medial fragment which was subperiosteally exposed. We followed this distally to locate the distal fragment and subperiosteally exposed it as well. Fracture hematoma was removed with the forceps and curette. This was saved for the end of the case. There was a marked amount of midshaft comminution. A Synthes locking clavicle plate was placed over the superior cortex. This was secured with lobster reduction clamps on both the medial and lateral fragments. A cortical screw was placed in the medial fragment. We then placed a cortical screw in the distal fragment. We filled the other holes with locking screws leaving the central screw holes at the fracture site open resulting in 4 screws on both sides of the fracture. The butterfly fragment was reduced and was se cured in place with a 0 Vicryl cerclage suture x2. This provided excellent fixation of the fracture, with an excellent reduction. An intraoperative AP view of the clavicle show an adequate reduction with well placed implants. The wound was irrigated with normal saline. The fracture hematoma was placed in the fracture site. We closed the platysma with an 0 Vicryl. Subcutaneous tissues with a 2-0 Vicryl and skin with a 3-0 Monocryl. Glue was used to seal the skin. A dry dressing was applied. The patient tolerated the procedure well. There were no apparent complications. They were carefully transferred to the hospital bed and taken to the postanesthesia care unit in satisfactory condition. PLAN: The patient will be discharged to home. Limited active range of motion of the shoulder will be allowed for 6 weeks. They will work on active range of motion of the elbow wrist and fingers. They will follow up in the office next week for a wound check and an AP and tangential view of the clavicle, prior to being seen.
--- NOTE | 2023-02-04 14:19 | W.ANESCHARGE ---
Anesthesia Charges Start Date/Time Anesthesia Start Date: 02/04/23 Anesthesia Start Time: 12:12 Stop Date/Time Anesthesia Stop Date: 02/04/23 Anesthesia Stop Time: 14:15
--- NOTE | 2023-02-04 16:10 | SUR.PHASEII ---
Patient's right arm reddened upon sitting up. Radial pulse strong, cap refill < 3 seconds, and arm warm to touch. Patient moved to recliner and monitored for 15 minutes. Arm decreased significantly in redness. Patient verbalized understanding to call ortho clinic if he had any concerns of reoccurrence.
== END 2023-02-04 16:12 | disposition home or self-care (01) ==
PROVIDERS: Visit Provider Orthopaedic Surgery
PROC: (CPT 23515; principal; 2023-02-04 12:15)
DX: S42.021A Displaced fracture of shaft of right clavicle, initial encounter for closed fracture (principal); G89.18 Other acute postprocedural pain
CPT/HCPCS: 23515; 00450; 64415; 73000; 76942; A9270; C1713; J0330; J0690; J2250; J2371; J2405; J2704; J3010; J7120

== ENCOUNTER 2023-06-02 16:45 | Outpatient (RCR) | payer OTHER, SELFPAY | END 2023-06-03 11:25 | disposition home or self-care (01) | PROVIDERS: Visit Provider Orthopaedic Surgery | DX: Z98.890 Other specified postprocedural states (principal); M25.511 Pain in right shoulder; Z51.89 Encounter for other specified aftercare | CPT/HCPCS: 97110; 97161 ==